=== PATIENT | male | born 1975 | race Two or more races ===

== ENCOUNTER 2024-08-17 06:35 | Day surgery (SDC) | payer BC, SELFPAY ==
[2024-08-13 10:25] VITALS: BMI 27.4
[2024-08-14 11:05] LABS: Basophils # (Auto) 0.1 Thou/mm3 (0.0-0.2); Basophils % (Auto) 1 % (0-2.5); Eosinophils # (Auto) 0.2 Thou/mm3 (0.0-0.5); Eosinophils % (Auto) 3 % (0-10); Hematocrit 44.4 % (41.0-53.0); Hemoglobin 14.9 g/dL (13.5-16.0); Immature Granulocytes % (Auto) 0 % (0-0); Immature Granulocytes Auto 0.01 Thou/mm3 (0.00-0.00); Lymphocytes % (Auto) 33 % (10-50); Mean Corpuscular HGB Conc 33.6 g/dl (31.0-37.0); Mean Corpuscular Volume 83 fL (80-100); Monocytes # (Auto) 0.6 Thou/mm3 (0.0-0.8); Monocytes % (Auto) 10 % (0-12); Neutrophils # (Auto) 3.3 Thou/mm3 (1.8-7.7); Neutrophils % (Auto) 54 % (37-80); Nucleated Red Blood Cell % 0 /100 WBC (0); Platelet Count 242 Thou/mm3 (140-440); Red Blood Count 5.33 Miln/mm3 (4.50-5.90); White Blood Count 6.2 Thou/mm3 (3.8-10.6)
[2024-08-14 11:12] LABS: Anion Gap 7 (7-16); BUN/Creatinine Ratio 17 Ratio (12-20); Blood Urea Nitrogen 19 mg/dL (9-23); Calcium 10.3 mg/dL (8.3-10.6); Carbon Dioxide 29.3 mMol/L (20.0-31.0); Chloride 100 mMol/L (98-107); Creatinine (Component) 1.1 mg/dL (0.6-1.3); Glucose 88 mg/dL (74-106); Osmolality,Calculated 273 (275-295); Partial Thromboplastin Time 26.8 Seconds (22.0-36.0); Potassium 4.7 mMol/L (3.4-5.1); Prothrombin Time 10.9 Seconds (9.0-12.2); Sodium 136 mMol/L (136-145); eGFR > 60 See Note
[2024-08-17] VITALS (27 sets, daily range): BP systolic 112–159; BP diastolic 62–101; PULSE 70–92; RESP 13–18; TEMP 36.5–36.6; O2SAT 95–100; BMI 30.7
[2024-08-17] MEDS: SODIUM CHLORIDE 0.45 % 500 ML 100 ML IV (07:29)
--- NOTE | 2024-08-17 12:40 | PC.NURSE ---
ACT was 152 at 12:10 and 12:40 called MD Bennett to ask if it was okay to remove Sheath, said that 152 is okay to remove sheath. will remove sheath now
--- NOTE | 2024-08-17 15:02 | ESOP_ITS ---
RE: DWIGHT CALVILLO : 1975 DATE OF OPERATION: 08/17/2024 REFERRING PHYSICIAN: Marlon Mace MD PROCEDURE PERFORMED: Left heart catheterization, LV angiography, selective left and right coronary angiography, aortic root angiography, selective left internal mammary bypass graft angiography, coronary angioplasty and intracoronary stent placement of the mid second obtuse marginal branch of the circumflex coronary artery and coronary angioplasty, intracoronary stent placement of the proximal to mid left circumflex coronary artery, selective right femoral arterial angiography. INDICATIONS: The patient with history of chronic hypertension, history of hyperlipidemia, history of arteriosclerotic heart disease, requiring coronary artery bypass graft surgery in 2014, history of diabetes mellitus, symptoms of exertional dyspnea, and recent exercise stress Cardiolite imaging studies showed reversible lateral wall myocardial perfusion defect. PROCEDURE IN DETAIL: After explaining the procedure in detail to the patient and after obtaining a proper consent, the patient was given 1 mg of intravenous Versed and 50 mcg of intravenous fentanyl as premedication. The right groin area was prepped with antiseptic solution. Local anesthetic 2% lidocaine was used and right femoral artery was punctured by Seldinger technique and a Hemoclip sheath size 6-Australian was put in the right femoral artery. Through the sheath, a pigtail catheter size 6-Australian was advanced and positioned in the ascending aorta. Aortic pressure was recorded and catheter placed across the aortic valve into the left ventricle. Left ventricular pressure recorded and LV angiography was performed in SMITH view using 36 mL of dye at a rate of 12 mL per second over a period of 3 seconds. After the left ventricular angiography, the pullback pressure recorded from left ventricle into the aorta and aortic root angiography were performed in BELGIAN view using 30 mL of dye at a rate of 15 mL per second over a period of 2 seconds. After the aortic root angiography, the catheter was exchanged with preformed left coronary Sarkis catheter size 6-Australian JL4, which was advanced with the help of a J-wire and tip positioned over the left coronary ostium. Several views of the left coronary artery were taken and after left coronary angiography, the catheter was exchanged with preformed right coronary artery, Sarkis JR4, which was advanced with the help of a J-wire and tip positioned over the right coronary ostium. Three views of the right coronary artery were taken and after the right coronary angiography, the catheter was exchanged with internal mammary artery catheter, which was advanced with a help of a J-wire and tip positioned at the ostium of the left internal mammary artery. The left internal mammary artery angiography were performed in BELGIAN as well as in SMITH views. Once the coronary angiogram was completed, the review of the angiogram showed severe stenosis in the proximal to mid left anterior descending coronary artery with patent left internal mammary artery bypass graft to the left anterior desecnding coronary artery and severe stenosis in the proximal to mid circumflex coronary artery as well as large second obtuse marginal branch with circumflex coronary artery in its mid to distal portion and we decided to proceed with coronary angioplasty and intracoronary stent placement on both sides. A size 6-Australian guiding catheter was advanced through the arterial sheath and positioned over left coronary ostium, guided views were obtained in BELGIAN as well as in SMITH views and Luge guidewire was advanced through the guiding catheter with some difficulties was able to be crossed across the site of stenosis in the proximal to mid circumflex coronary artery as well as second obtuse marginal branch of the circumflex coronary artery stenotic sites is size 2.0 x 12 mm long balloon catheter was advanced over the guidewire and tip positioned at the site of the stenosis in the circumflex, obtuse marginal branch and predilatation was performed with 2.0 mm balloon catheter. The balloon catheter was pulled back and also another inflation was performed in the proximal to mid portion with a circumflex coronary artery. After the coronary angioplasty, a size 2.25 x 15 mm long Xience Abbot drug eluting intracoronary stent was advanced over the guidewire and was positioned at the site of stenosis and mid to distal portion of the second obtuse marginal branch, the stent was deployed at 9 atmospheric pressure for 30 seconds and high pressure balloon inflation was performed at 14 atmospheric pressure for another 30 seconds. After the high pressure balloon inflation, the balloon catheter was pulled back and angiogram repeated over the wire. Once the successful results were noted, the second drug eluting intracoronary stent size 3.0 x 16 mm Synergy stent was advanced over a guidewire and was positioned at the site of stenosis in the proximal to mid portion of the circumflex coronary artery. Stent was deployed at 11 atmospheric pressure for 30 second and high pressure balloon inflation was performed at 14 atmospheric pressure for another 30 second. After the high pressure balloon inflation, the balloon catheter was pulled back and angiogram repeated over the wire. A 200 mcg of intracoronary nitroglycerin was given. The guidewire as well as guiding catheter was pulled out and the right femoral arterial angiography were performed in BELGIAN as well as in SMITH views as the arterial puncture site was closed with bifurcation of the right common femoral artery. The sheath was left in place and will be taken out once the patient ACT is within the satisfactory range. The patient did receive total of 7000 units of intravenous heparin as well as double bolus of intravenous Integrilin before and during the procedure. The patient tolerated the procedure very well without any complications. The results of the procedure are as follows. The hemodynamic data showed aortic pressure 144/69 with mean of 100. The left ventricular pressure 130/11. Post angiography, left ventricular pressure 140/13. There is no gradient noted across the aortic valve on pullback pressure. The left ventricular angiography showed normal-sized left ventricle with normal left ventricular systolic function and left ventricular ejection fraction of 60%. No evidence of mitral regurgitation is noted. The aortic root angiography showed normal-sized aortic root with no evidence of aortic regurgitation and no vein bypass grafts visualized. The coronary angiography showed left main coronary artery normal. The left anterior descending coronary artery shows severe diffuse disease with 70% stenosis in the proximal portion and plaque ulceration. The first diagonal branch is a small caliber vessel and shows 90% diffuse narrowing in its proximal mid as well as distal portion. The mid left anterior descending coronary artery also showed long segment of 80% stenosis. The distal left anterior descending coronary artery is having competitive flow from the internal mammary artery bypass graft. The circumflex coronary artery shows a tiny caliber first obtuse marginal branch and 90% stenosis in its mid portion after the tiny caliber first obtuse marginal branch, which extends over to the proximal portion of the second large obtuse marginal branch. The second obtuse marginal branch also shows 99% stenosis in its mid to distal portion. Post coronary angioplasty and intracoronary stent placement, the residual stenosis is noted to be 0%. Minimal diffuse luminal irregularity is noted in the very distal portion. The proximal to mid left circumflex coronary artery shows post coronary angioplasty and intracoronary stent placement with residual stenosis to be 0%. The right coronary angiography showed large dominant right coronary artery with minimal luminal irregularity in its midportion with 20% to 30% stenosis. Another segment of 50% stenosis is noted in its mid to distal portion. The posterior descending branch of the right coronary artery is a small caliber vessel and shows diffuse luminal narrowing with 60% stenosis in the proximal, mid, and distal portion. The LV post collateral branches of the right coronary artery are normal. The right femoral arterial angiography is normal and arterial puncture site is closed to the bifurcation of the right common femoral artery. FINAL IMPRESSION: 1. Successful coronary angioplasty and intracoronary stent placement of the proximal to mid left circumflex coronary artery with stenosis reduced from 90% to 0% as dual stenosis. 2. Successful multivessel coronary angioplasty and intracoronary stent placement of the mid to distal second obtuse marginal branch of the circumflex coronary artery with stenosis reduced from 99% to 0% residual stenosis. 3. Severe diffuse disease with 70% stenosis in the proximal left anterior descending coronary artery with plaque ulceration, 80% stenosis over a long segment in the mid left anterior descending coronary artery, minimal luminal irregularity in the distal left anterior descending coronary artery, 90% diffuse stenosis in the small caliber first diagonal branch, 20% stenosis in the mid right coronary artery, 50% stenosis in the mid to distal right coronary artery, 60% diffuse disease in the proximal mid as well as distal portion of the posterior descending branch of the right coronary artery. 4. Patent left internal mammary artery bypass graft to the distal left anterior descending coronary artery. 5. Normal sized left ventricle with normal left ventricular systolic function with left ventricular ejection fraction of 60%. 6. Normal right femoral arterial angiography. cc: Marlon Mace MD DT: 11:00:54 TT: 15:01:00 Ref: [id number] - TID: [id number]
== END 2024-08-17 19:00 | disposition home or self-care (01) ==
PROVIDERS: PCP Family Medicine; Referring Provider Internal Medicine Cardiovascular Disease; Visit Provider Internal Medicine Cardiovascular Disease
PROC: (CPT 93458; principal; 2024-08-17 07:30)
DX: I25.118 Atherosclerotic heart disease of native coronary artery with other forms of angina pectoris (principal); E13.9 Other specified diabetes mellitus without complications; Z95.1 Presence of aortocoronary bypass graft; I10 Essential (primary) hypertension; E78.5 Hyperlipidemia, unspecified
CPT/HCPCS: 93458; 93567; C9600; G0278; 36415; 80048; 85025; 85347; 85610; 85730; 99152; 99153; A4649; C1725; C1769; C1874; C1887; C1894; J0171; J0461; J1327; J1643; J2250; J2310; J2371; J3010; J3490; J7040; Q9967; A9270; J2305

== ENCOUNTER → 2025-01-26 | Outpatient (CLI) | payer OTHER, SELFPAY ==
--- NOTE | 2025-01-26 14:37 | EKG_ITS ---
[facility] Test Date: 2025-01-26 Pat Name: DWIGHT CALVILLO Department: Room: - Gender: Male Housing Coordinator: RT STUDENT : 1975 Requested By: Son Arthur Order Number: [id number] Reading MD: Son Arthur Measurements Intervals [place] Rate: 85 P: 5 [place]: 132 QRS: 80 QRSD: 109 T: 49 QT: 346 QTc: 412 Interpretive Statements SINUS RHYTHM No previous ECG available for comparison /[id number]/[email or web address]/[id number]
[2025-01-26 16:35] LABS: Basophils # (Auto) 0.1 Thou/mm3 (0.0-0.2); Basophils % (Auto) 1 % (0-2.5); Eosinophils # (Auto) 0.3 Thou/mm3 (0.0-0.5); Eosinophils % (Auto) 4 % (0-10); Hematocrit 39.8 % (41.0-53.0); Hemoglobin 13.7 g/dL (13.5-16.0); Immature Granulocytes % (Auto) 0 % (0-0); Immature Granulocytes Auto 0.01 Thou/mm3 (0.00-0.00); Lymphocytes # (Auto) 2.3 Thou/mm3 (1.0-4.8); Lymphocytes % (Auto) 36 % (10-50); Mean Corpuscular HGB Conc 34.4 g/dl (31.0-37.0); Mean Corpuscular Volume 84 fL (80-100); Monocytes # (Auto) 0.6 Thou/mm3 (0.0-0.8); Monocytes % (Auto) 9 % (0-12); Neutrophils # (Auto) 3.1 Thou/mm3 (1.8-7.7); Neutrophils % (Auto) 50 % (37-80); Nucleated Red Blood Cell % 0 /100 WBC (0); Platelet Count 217 Thou/mm3 (140-440); RDW Standard Deviation 43.9 fL (35.1-43.9); Red Blood Count 4.73 Miln/mm3 (4.50-5.90); White Blood Count 6.2 Thou/mm3 (3.8-10.6)
[2025-01-26 16:52] LABS: Glucose Estimated Average 128 mg/dL (80-131); Hemoglobin A1C 6.1 % Hgb (4.8-6.0)
[2025-01-26 17:03] LABS: Alanine Aminotransferase 26 U/L (10-49); Albumin, Serum 4.7 gm/dL (3.5-5.0); Albumin/Globulin Ratio 1.9 (1.2-2.2); Alkaline Phosphatase 76 U/L (46-116); Anion Gap 10 (7-16); Aspartate Amino Transferase 29 U/L (0-34); BUN/Creatinine Ratio 11 Ratio (12-20); Bilirubin,Total 0.6 mg/dL (0.3-1.2); Blood Urea Nitrogen 13 mg/dL (9-23); Calcium 9.3 mg/dL (8.3-10.6); Calcium (Corrected) 9.3 mg/dL (8.5-10.1); Carbon Dioxide 27.6 mMol/L (20.0-31.0); Chloride 102 mMol/L (98-107); Creatinine (Component) 1.2 mg/dL (0.6-1.3); Globulin 2.5 gm/dL (2.3-3.5); Glucose 140 mg/dL (74-106); Osmolality,Calculated 281 (275-295); Sodium 140 mMol/L (136-145); Total Protein 7.2 gm/dL (5.7-8.2); eGFR > 60 See Note
== END | disposition home or self-care (01) ==
PROVIDERS: PCP Family Medicine; Referring Provider Orthopaedic Surgery; Visit Provider Radiology Diagnostic Radiology
DX: M25.512 Pain in left shoulder (principal); S43.432D Superior glenoid labrum lesion of left shoulder, subsequent encounter; X58.XXXD Exposure to other specified factors, subsequent encounter
CPT/HCPCS: 36415; 80053; 83036; 85025; 93005